=== PATIENT | male | born 1945 | race Caucasian/White ===

== ENCOUNTER 2020-02-28 14:15 | Outpatient (CLI) | payer MEDICARE, OTHER, SELFPAY ==
--- NOTE | 2020-02-28 14:27 | XR_ITS ---
WS: [id number] PROCEDURE: XR chest 2V* [id number] CLINICAL INFORMATION: COUGH COMPARISON: None. FINDINGS: Heart: Normal cardiac silhouette. Lungs: Chronic calcified granulomas. No acute pulmonary infiltrates. Mild chronic emphysematous daniels es. No focal pneumonia. Bones: Normal visualized bony structures. XR/XR chest 2V* [id number] IMPRESSION: 1. Chronic calcific granulomas. No acute pulmonary infiltrates. 2. Mild chronic emphysematous changes.
== END 2020-02-28 14:16 | disposition home or self-care (01) ==
PROVIDERS: Visit Provider Family Medicine
DX: R05 Cough (principal); J43.8 Other emphysema
CPT/HCPCS: 71046

== ENCOUNTER 2020-09-12 18:42 | Inpatient (IN) | payer MEDICARE, OTHER, SELFPAY ==
[2020-09-12 18:46] VITALS: BP 182/92; PULSE 96; RESP 18; TEMP 36.7; O2SAT 99; BMI 24.3
--- NOTE | 2020-09-12 18:47 | CTR_ITS ---
PROCEDURE INFORMATION: Exam: CT Head Without Contrast Exam date and time: 09/12/2020 7:36 PM Age: 75 years old Clinical indication: Altered mental status/memory loss and speech disturbance; Unspecified; Patient HX: C/O PETE, memory loss, rue numbness and speech difficulty; Additional info: TIA TECHNIQUE: Imaging protocol: Computed tomography of the head without contrast. Total images: 212 Radiation optimization: All CT scans at this facility use at least one of these dose optimization techniques: automated exposure control; mA and/or kV adjustment per patient size (includes targeted exams where dose is matched to clinical indication); or iterative reconstruction. COMPARISON: No relevant prior studies available. RADIATION DOSE METRICS: Total DLP (mGy-cm): 854.13 FINDINGS: Brain: No evidence of active or acute intracranial pathologic process, hemorrhage, or trauma. 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 Cerebral and cerebellar atrophy with ventricular dilatation greater than that anticipated for patient's chronological age. No mass effect. No midline shift. No cerebral edema. Cerebral ventricles: No ventriculomegaly. Bones/joints: Unremarkable. No acute fracture. Paranasal sinuses: Visualized sinuses are unremarkable. No fluid levels. Mastoid air cells: Visualized mastoid air cells are well aerated. Soft tissues: Unremarkable. CT/CT head wo con* [id number] IMPRESSION: No evidence of active or acute intracranial pathologic process, hemorrhage, or trauma. Radiation Dose CTDIVOL = (mGy): DLP = 854.13 (mGy-cm)
--- NOTE | 2020-09-12 20:02 | ED_ITS ---
HPI - Neuro Symptoms/Deficit General: Chief Complaint: Neuro Symptoms/Deficit Stated Complaint: TIA Time Seen by Provider: 09/12/20 19:52 Source: patient Mode of arrival: ambulatory Limitations: no limitations History of Present Illness: HPI Narrative: 75-year-old male states that at eleven today he started having some numbness down his righ tside along witha phasia and difficulty finding words. He states this lasted roughly 30 minutes he had a headach eas wel and he states that all symptoms resolved. He states that episodes like this over the last month or two. Patient denies any worsening or improving factors. He denies any headache currently. He denies any chest pain. Associated symptoms: Deny chest pain, headache(s), nausea or vomiting Review of Systems Const: Denies: fever(s), chills, body aches or change in appetite Eyes: Denies: blurry vision or eye discomfort ENMT: Denies: throat pain or dental pain Card: Denies: chest pain Resp: Denies: dyspnea GI: Denies: abdominal pain, nausea, vomiting or diarrhea : Denies: dysuria Musc: Denies: neck pain or back pain Skin/Breast: Denies: rash Neuro: Denies: headache(s) Psych: Denies: depression Collin/Lymph: Denies: easy bruising All/Imm: Denies: urticaria Physical Exam Const: COMMON NORMALS: no acute distress, patient oriented x3, healthy appearing and alert ORIENTATION/CONSCIOUSNESS: Yes oriented to person, Yes oriented to place and Yes oriented to time HENMT: COMMON NORMALS: normocephalic and atraumatic HEAD & SCALP: normocephalic and atraumatic Eye: COMMON NORMALS: Equal, round and reactive pupils present and EOMs intact bilaterally PUPIL: Yes Equal, round and reactive pupils present Neck/C-Spine: COMMON NORMALS: full ROM and supple Chest: COMMONS NORMALS: normal inspection of the chest and normal palpation of entire chest wall Resp: COMMON NORMALS: normal respiratory effort, No retractions, No use of accessory muscles and clear to auscultation bilaterally AUSCULTATION: clear to auscultation bilaterally Cardio: COMMON NORMALS: regular rate, regular rhythm and No murmurs present (Cardio) RATE: regular rate RHYTHM: regular rhythm GI: COMMON NORMALS: Normal to inspection, nondistended, normoactive bowel sounds present, Soft to palpation, non-tender and no masses PALPATION: Yes Soft to palpation Extremity: COMMON NORMALS: normal to inspection and full ROM Neuro: COMMON NORMALS: patient oriented x3, moves all extremities and no focal motor deficits SENSORIUM/ORIENTATION: Yes alert, Yes oriented to person, Yes oriented to place and Yes oriented to time CRANIAL NERVES: Yes CN normal except as noted SPEECH: speech normal GAIT: Yes Normal gait present MOTOR EXAM: 5/5 motor strength present throughout and Pronator motor function not present Psych: COMMON NORMALS: mental status grossly normal, Normal thought process present and cooperative THOUGHT PROCESS: Normal thought process present Skin: COMMON NORMALS: no rashes or lesions noted and no wounds GENERAL SKIN EXAM: no rashes or lesions noted Course Vital Signs: Vital signs: Vital Signs Temperature 98.1 F 09/12/20 18:46 Pulse Rate 86 09/12/20 21:02 Respiratory Rate 18 09/12/20 21:02 Blood Pressure 154/93 09/12/20 21:02 Pulse Oximetry 97 09/12/20 21:02 MDM - Neuro Symptoms/Deficit MDM Narrative: Medical decision making narrative: Davy presents here with a TIA. Patient symptoms have completely resolved and is not a TPA candidate. Patient given aspirin here. CT and blood work here is all normal. I spoke to hospitalist will admit for observation for his TIA. Lab Data: Labs: Lab Results 09/12/20 09/12/20 09/12/20 Range/Units 19:30 19:30 20:45 WBC 9.8 (4.0-10.0) 10^3/ uL RBC 4.26 (4.1-5.3) 10^6/u L Hgb 13.3 (11.7-16.6) g/dL Hct 39.2 L (42.0-52.0) % MCV 92.0 (80-94) fL MCH 31.2 (28.0-34.0) pg MCHC 33.9 (30.0-36.0) g/dL RDW 12.5 (12.1-15.1) % Plt Count 255 (130-400) 10^3/c mm MPV 10.8 H (7.4-10.4) fL Neut % (Auto) 39.7 % Lymph % (Auto) 42.8 % Schley % (Auto) 10.4 % Eos % (Auto) 6.0 % Baso % (Auto) 0.9 % Neut # (Auto) 3.89 (1.8-7.7) 10^3/u L Lymph # (Auto) 4.2 (0.8-4.8) 10^3/u L Schley # (Auto) 1.0 H (0.2-0.9) 10^3/u L Eos # (Auto) 0.6 (0.0-0.8) 10^3/u L Baso # (Auto) 0.1 (0.0-0.1) 10^3/u L Nucleated RBC % (a uto) 0 % Nucleated RBCs # 0.0 /100WBC Sodium 139 (136-145) mmol/L Potassium 3.8 (3.5-5.1) mmol/L Chloride 104 (98-107) mmol/L Carbon Dioxide 25 (22-29) mmol/L Anion Gap 13.8 (5-19) BUN 15 (8-23) mg/dL Creatinine 0.8 (0.7-1.2) mg/dL GFR Calculation Not Reportable Glucose 112 (65-115) mg/dL POC Glucose 95 (70-110) mg/dL Calculated Osmolal ity 290 (285-295) mOsm/k g Calcium 9.2 (8.5-10.5) mg/dL Total Bilirubin 0.2 (0.15-1.2) mg/dL AST 21 (0-40) U/L ALT 22 (0-41) U/L Alkaline Phosphata se 60 (40-130) IU/L Total Protein 7.5 (6.6-8.7) g/dL Albumin 4.1 (3.5-5.2) g/dL Globulin 3.4 (1.3-4.6) g/dL Imaging Data^: CT Head: Attestation: I personally reviewed and interpreted this imaging study as follows: Radiologist's impression: [address] [address] [address] Scan Report Signed Patient: Davy Rader Unit #: [id number] : 1945 Age/Sex: 75 / M ADM Date: 09/12/20 Loc: ER Room/Bed: Attending Dr: Ordering Provider/Ordering MD: Terri Mendes MD Date of Service: 09/12/20 Procedure(s): CT head wo con* [id number] Accession Number(s): [id number] Report Number: [id number] PROCEDURE INFORMATION: Exam: CT Head Without Contrast Exam date and time: 09/12/2020 7:36 PM Age: 75 years old Clinical indication: Altered mental status/memory loss and speech disturbance; Unspecified; Patient HX: C/O PETE, memory loss, rue numbness and speech difficulty; Additional info: TIA TECHNIQUE: Imaging protocol: Computed tomography of the head without contrast. Total images: 212 Radiation optimization: All CT scans at this facility use at least one of these dose optimization techniques: automated exposure control; mA and/or kV adjustment per patient size (includes targeted exams where dose is matched to clinical indication); or iterative reconstruction. COMPARISON: No relevant prior studies available. RADIATION DOSE METRICS: Total DLP (mGy-cm): 854.13 FINDINGS: Brain: No evidence of active or acute intracranial pathologic process, hemorrhage, or trauma. 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 Cerebral and cerebellar atrophy with ventricular dilatation greater than that anticipated for patient's chronological age. No mass effect. No midline shift. No cerebral edema. Cerebral ventricles: No ventriculomegaly. Bones/joints: Unremarkable. No acute fracture. Paranasal sinuses: Visualized sinuses are unremarkable. No fluid levels. Mastoid air cells: Visualized mastoid air cells are well aerated. Soft tissues: Unremarkable. CT/CT head wo con* [id number] IMPRESSION: No evidence of active or acute intracranial pathologic process, hemorrhage, or trauma. 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
[2020-09-12 20:14] LABS: Basophils # 0.1 10^3/uL (0.0-0.1); Basophils % 0.9 %; Eosinophils # 0.6 10^3/uL (0.0-0.8); Hematocrit 39.2 % (42.0-52.0); Hemoglobin 13.3 g/dL (11.7-16.6); Lymphocytes # 4.2 10^3/uL (0.8-4.8); Lymphocytes % 42.8 %; Mean Corpuscular HGB Conc 33.9 g/dL (30.0-36.0); Mean Corpuscular Hemoglobin 31.2 pg (28.0-34.0); Mean Platelet Volume 10.8 fL (7.4-10.4); Monocytes % 10.4 %; Neutrophils # 3.89 10^3/uL (1.8-7.7); Neutrophils % 39.7 %; Nucleated Red Blood Cells % 0 %; Platelet Count 255 10^3/cmm (130-400); Red Blood Count 4.26 10^6/uL (4.1-5.3); Red Cell Distribution Width 12.5 % (12.1-15.1); White Blood Count 9.8 10^3/uL (4.0-10.0)
[2020-09-12 20:41] LABS: Alanine Aminotransferase 22 U/L (0-41); Albumin Level 4.1 g/dL (3.5-5.2); Alkaline Phosphatase 60 IU/L (40-130); Anion Gap 13.8 (5-19); Aspartate Amino Transferase 21 U/L (0-40); Blood Urea Nitrogen 15 mg/dL (8-23); Calcium 9.2 mg/dL (8.5-10.5); Carbon Dioxide 25 mmol/L (22-29); Chloride 104 mmol/L (98-107); Globulin 3.4 g/dL (1.3-4.6); Glucose 112 mg/dL (65-115); Osmolality Calculated 290 mOsm/kg (285-295); Potassium 3.8 mmol/L (3.5-5.1); Sodium 139 mmol/L (136-145); Total Bilirubin 0.2 mg/dL (0.15-1.2); Total Protein 7.5 g/dL (6.6-8.7)
[2020-09-12 20:50] LABS: Glucose Point of Care 95 mg/dL (70-110)
[2020-09-12 21:02] VITALS: BP 154/93; PULSE 86; RESP 18; O2SAT 97
[2020-09-12 21:38] LABS: Add Urine Microscopic? NO
--- NOTE | 2020-09-12 21:38 | PM.HP ---
Providers/Chief Complaint Chief Complaint: TIA History of Present Illness Davy Rader is a 75 year old male who only has past medical history of hypertension presented today after experiencing expressive aphasia and right hand numbness. Patient is stating that he had similar episode a year ago when he had total darkness in front of his eyes which resolved on its own while he was working outside in today his symptoms started while he was in his tractor doing work in his cace[place]. He started experiencing frontal headache which he initially attributed to sinus infection, he is describing this headache as achy, would not call it migraine/throbbing headache, he did not experience any nausea, vomiting however with coughing his headache was getting worse when he went home his headache was not getting better and after eating his meal at 1 PM he started experiencing expressive aphasia and numbness of right side of his hand involving third fourth and fifth digit. His daughter was next to him who is a physical therapist she noticed facial droop and weakness of handgrip with expressive aphasia. His symptoms lasted for about 15 to 20 minutes and resolved spontaneously. Patient is denying fever, nausea, vomiting, shortness of breath, syncope, seizure-like activities, chest pain, palpitations Diagnosis in the ER revealed hypotension, normal hemodynamics, normal blood chemistry and UA CT head unremarkable, on clinical exam he has soft systolic murmur right second intercostal space otherwise NIH score 0, he was given a loading dose of aspirin Review of Systems Const: Denies: fever(s), chills, body aches or fatigue Eyes: Denies: change in vision ENMT: Denies: throat pain Card: Denies: chest pain Resp: Denies: dyspnea GI: Denies: abdominal pain : Denies: flank pain Musc: Denies: neck pain Skin/Breast: Denies: rash Neuro: Reports: headache(s), weakness in extremities and Slurred speech present Psych: Denies: anxiety Endo: Denies: polyuria Collin/Lymph: Denies: easy bruising All/Imm: Denies: urticaria PFSH Acute PFSH: Medical History (Updated 09/12/20 @ 22:31 by Jr Bryant MD) Hypertension Surgical History (Updated 09/12/20 @ 22:31 by Jr Bryant MD) No pertinent past surgical history Family History (Updated 09/12/20 @ 22:31 by Jr Bryant MD) Family/Other CAD (coronary artery disease) at age 84 Social History (Updated 09/12/20 @ 22:31 by Jr Bryant MD) Smoking and tobacco status: never smoked Alcohol intake: never Substance/Drug Use: never Household members: spouse Housing: House Vitals/I&O/Wt Last Vital Signs Temp 98.1 F 09/12/20 18:46 Pulse 86 09/12/20 21:02 Resp 18 09/12/20 21:02 BP 154/93 09/12/20 21:02 Pulse Ox 97 09/12/20 21:02 Weight last 48 hrs Weight 72.575 kg Physical Exam Narrative: EXAM NARRATIVE: elderly male who looks younger than stated age Well-hydrated, appropriately groomed NIH score 0 No active complaints No active chest pain S1, S2 sinus rhythm grade 2 systolic murmur right second intercostal space No cerebellar signs Awake alert oriented x3 no facial asymmetry No dysarthria Abdomen soft nontender bowel sound present Respiratory no distress bilateral breath sounds without adventitious rhonchi or crackles Lower extremity no edema gangrene ulcer Awake alert oriented x3 Skin without any ulcers No active headache Data : 09/12/20 19:30 09/12/20 19:30 A&P Assessment and plan (1) Transient cerebral ischemia: TIA ABCD [address] head unremarkable, will request MRI head with MRA Echo in the morning for systolic murmur Would request lipid panel, TSH and vascular imaging NIH 0 at the time my evaluation Would start dual antiplatelet therapy to be continued for at least 21 days, start high-dose statins Status: Acute Qualifiers: Transient cerebral ischemia type: unspecified Qualified Code(s): G45.9 - Transient cerebral ischemic attack, unspecified Additional A&P Information Hypertension: He takes losartan 50 mg at home which I would continue for now if he stays above 140/90 mmHg would recommend adding a second agent Headache: Patient complain of headache which got worse on coughing however CT head did not reveal any cranial mass with follow-up with MRI no active headache at this point no history of migraine Full code Cardiac diet DVT prophylaxis Lovenox Attestations Medical Necessity Statement*: Anticipating discharge in less than 48 hours will need MRI to rule out acute infarct for expressive aphasia right arm numbness he also has undiagnosed systolic murmur which needs further evaluation with echo Time Spent in Patient Care: (>than 50% of time spent in counselling and/or direct pt care on unit). 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
[2020-09-12] MEDS: aspirin 81 mg Chew Tablet 324 MG PO (21:49)
[2020-09-12 21:53] LABS: Bilirubin Urine Neg (Negative); Blood Urine Neg (Negative); Glucose Urine UA Norm (Normal); Ketones Urine Negative (Negative); Leukocyte Esterase Urine Negative (Negative); Nitrate Urine Negative (Negative); Protein Urine Neg (Negative); Specific Gravity, Urine 1.015 (1.005-1.030); Urine Appearance Clear (CLEAR); Urine Color Straw (Yellow); Urobilinogen Urine Norm (Negative); pH Urine 5 (5-7)
[2020-09-12 22:00] VITALS: BP 168/95; PULSE 74; RESP 18; O2SAT 97
--- NOTE | 2020-09-12 22:13 | MRR_ITS ---
PROCEDURE INFORMATION: Exam: MR Angiogram Head Without Contrast, Arteries Exam date and time: 09/12/2020 10:14 PM Age: 75 years old Clinical indication: Other: TIA TECHNIQUE: Imaging protocol: MR angiogram head without contrast. Exam focused on the arteries. COMPARISON: CT head wo con* [id number] 09/12/2020 7:32 PM FINDINGS: ANTERIOR CIRCULATION: Right internal carotid artery: Intracranial segment is patent with no significant stenosis. No aneurysm. Right middle cerebral artery: No occlusion or significant stenosis. No aneurysm. Right anterior cerebral artery: No occlusion or significant stenosis. No aneurysm. Left internal carotid artery: Intracranial segment is patent with no significant stenosis. No aneurysm. Left middle cerebral artery: No occlusion or significant stenosis. No aneurysm. Left anterior cerebral artery: No occlusion or significant stenosis. No aneurysm. POSTERIOR CIRCULATION: Right vertebral artery: No occlusion or significant stenosis. No aneurysm. Left vertebral artery: No occlusion or significant stenosis. No aneurysm. Basilar artery: No occlusion or significant stenosis. No aneurysm. Right posterior cerebral artery: No occlusion or significant stenosis. No aneurysm. Left posterior cerebral artery: No occlusion or significant stenosis. No aneurysm. MR/MR angio head wo con [id number] IMPRESSION: No stenosis or occlusion.
--- NOTE | 2020-09-12 22:13 | MRR_ITS ---
PROCEDURE INFORMATION: Exam: MR Head Without Contrast Exam date and time: 09/13/2020 1:51 PM Age: 75 years old Clinical indication: Other: TIA TECHNIQUE: Imaging protocol: MR of the head without contrast. COMPARISON: CT head wo con* [id number] 09/12/2020 7:32 PM FINDINGS: Brain: Moderate chronic microvascular ischemic changes. No acute infarct. Cerebral ventricles: Normal. No ventriculomegaly. Bones/joints: Unremarkable. Paranasal sinuses: Normal as visualized. No acute sinusitis. Mastoid air cells: Normal as visualized. No mastoid effusion. Orbits: Unremarkable. Soft tissues: Unremarkable. Other findings: No hemorrhage. MR/MR head wo con* [id number] IMPRESSION: No acute intracranial abnormality. Chronic microvascular ischemic changes.
[2020-09-12 22:32] LABS: INR 0.88 (0.8-1.2)
[2020-09-12] MEDS: losartan 50 mg Tablet PO (22:35)
[2020-09-12] MEDS: enoxaparin 40 mg/0.4 mL Syringe SUBCUT (22:45)
[2020-09-12 23:15] VITALS: BP 168/95; PULSE 78; RESP 18; O2SAT 97
[2020-09-13 02:08] LABS: Chol HDL Ratio 4.76 mg/dL (1.0-5.00); Cholesterol 200 mg/dL (0-200); HDL Cholesterol 42 mg/dL (60-100); LDL Cholesterol Calculated 132 mg/dL (50-129); LDL HDL Ratio 3.14 RATIO (0.00-3.22); Thyroid Stimulating Hormone 13.48 uIU/mL (0.27-4.20); Triglycerides 130 mg/dL (0-150); Vitamin B12 362 pg/mL (232-1245)
[2020-09-13 03:24] VITALS: BP 140/84; PULSE 70; RESP 16; O2SAT 97
[2020-09-13 07:30] VITALS: BP 123/78; PULSE 65; O2SAT 96
[2020-09-13 08:38] VITALS: BP 157/92
[2020-09-13] MEDS: losartan 50 mg Tablet PO (08:38)
[2020-09-13] MEDS: amlodipine 5 mg Tablet PO (08:39)
[2020-09-13] MEDS: aspirin 81 mg EC Tablet PO (08:40)
[2020-09-13] MEDS: clopidogrel 75 mg Tablet PO (08:40)
[2020-09-13] MEDS: atorvastatin 40 mg Tablet 80 MG PO (08:40)
[2020-09-13 11:00] VITALS: BP 147/92; PULSE 67; O2SAT 98
[2020-09-13 14:50] LABS: Free T4 Free Thyroxine 1.01 ng/dL (0.82-1.77); T3 Free 3.1 PG/ML (2.0-4.4)
--- NOTE | 2020-09-13 15:02 | PC.NURSE ---
Pt to MRI via EMS stretcher at this time
[2020-09-13 16:49] VITALS: BP 136/89; PULSE 84; O2SAT 98
--- NOTE | 2020-09-13 17:22 | PM.DCS ---
Discharge Providers Date of Admission: 09/12/20 20:58 Date of Discharge: September 13, 2020 Attending Provider at Admission: Jr Bryant MD Attending Provider at Discharge: Richard Xie Diagnoses at Discharge Discharge Diagnosis (1) Transient cerebral ischemia: Status: Acute Qualifiers: Transient cerebral ischemia type: unspecified Qualified Code(s): G45.9 - Transient cerebral ischemic attack, unspecified Reason for Visit Reason for Visit: TIA Hospital Course Hospital Course Very pleasant 75-year-old gentleman with history of HTN was admitted after episode of word finding difficulty at home, numbness of the right hand, right-sided facial droop noticed by his daughter. 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 States that he was not feeling well, and things worsened at home. Reportedly apart from feeling unwell he also noticed at home that he was having trouble getting his words out. He knew what he wanted to say, but things would not come out right. He did have associated headache. Denies associated vision changes. Numbness of the right hand was present. Daughter reportedly noticed weakness of handgrip, and also right-sided facial droop. Symptoms lasted about 15-20 minutes and spontaneously resolved per report. No symptoms of acute infection reported. He was brought in for evaluation in ER. He remained asymptomatic. CT of the head showed no bleeding and otherwise no evidence of acute intracranial pathology. He is already been taking aspirin 81 mg at home. He was in addition started on Plavix, statin. Was assessed by carotid Doppler which was unremarkable. Was noted to have soft systolic murmur on examination. Echocardiogram was performed with incidental finding of a calcified and thickened aortic valve, but without significant stenosis or regurgitation. He was monitored on telemetry in emergency department where he stayed due to lack of beds in the hospital, without noted atrial fibrillation. His glucose was not elevated. His blood pressures were initially as high as 182/92, subsequently gradually trended down closer to target range, 136/89. He was continued on losartan, however, amlodipine was added due to some persistent elevation in blood pressures in the 150s-160s systolic. Hypertension is certainly a risk factor in his case for TIA/CVA. This was discussed in detail with him and his spouse, in addition to other risk factors which may need to be concerned about. MRI and MRA of the brain were obtained, with finding of some chronic microvascular changes, otherwise unremarkable. No acute CVA noted. Prescription due to TIA he is at elevated risk of CVA going forward. In addition to hypertension will refer him for assessment with 21-day panel monitor to exclude paroxysmal atrial fibrillation as discussed and agreed upon also by Dr. Parsons who will be supervising to monitor. For now we will hold off on LIANNA as per discussion given CVA was not seen on MRI, however, this may be considered per discussion with neurology and PCP in office as discussed with him and his . They are agreeable for now to continue with 21-day course of Plavix in addition to aspirin. We discussed a Increased risk of bleeding with this regimen. After which Plavix would be discontinued unless deemed beneficial to continue longer by neurology. He is restarted on atorvastatin. 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 He does want to try restart therapy again, but will be vigilant and contact his primary care's office in case develops any symptoms of myopathy. We also discussed possibility of hemiplegic migraine as possible alternative explanation of his symptoms, due to also presence of a headache at that time. He otherwise does not describe symptoms of aura, although given lack of CVA visualized this may still be a possibility. Discussed with him and spouse that hemiplegic migraines may still elevate his risk of CVA in the future. They are agreeable to also raise this consideration with neurology during his visit. They understand reducing the risk of TIA/CVA and risk factors would still be the overarching goal. Patient states that he is feeling well, without return of symptoms, and is ready to return home. He will stay out of stressful jobs going forward, but will maintain moderate activity returning to his work when cleared to do so by his primary care provider and/or neurologist. During hospitalization incidentally noted also to have subclinical hypothyroidism, with TSH 13.48, free T4 1.01, free T3 3.1. Physical Exam Const: COMMON NORMALS: no acute distress and patient oriented x3 HENMT: COMMON NORMALS: oropharynx normal Neck/C-Spine: COMMON NORMALS: no meningeal signs and no JVD Resp: COMMON NORMALS: normal respiratory effort and clear to auscultation bilaterally AUSCULTATION: clear to auscultation bilaterally Cardio: COMMON NORMALS: no JVD, regular rhythm, S1 normal heart sound present, S2 normal heart sound present and No murmurs present (Cardio) RHYTHM: regular rhythm HEART SOUNDS: S1 normal heart sound present and S2 normal heart sound present GI: COMMON NORMALS: Normal to inspection, nondistended, normoactive bowel sounds present, Soft to palpation and non-tender PALPATION: Yes Soft to palpation Extremity: COMMON NORMALS: no joint enlargement and no pedal edema Neuro: COMMON NORMALS: patient oriented x3 and moves all extremities MENINGEAL SIGNS: Yes no meningeal signs COORDINATION/BALANCE: [id number]-[id number] test normal SPEECH: speech normal GAIT: Yes Normal gait present SENSORY EXAM: Yes extremities (symmetrical) and Normal double simultaneous stimulation for sensation MOTOR EXAM: 5/5 motor strength present throughout COORDINATION: [id number]-kq-[id number] test normal OTHER: Visual caceres full to confrontation. Skin: COMMON NORMALS: no rashes or lesions noted GENERAL SKIN EXAM: no rashes or lesions noted Discharge Data Data Completed and Pending: Completed Studies During Hospitalization Category Date Time Status CT head wo con* [id number] Urgent Cat Scan 09/12/20 18:47 Completed MR angio head wo con [id number] Routine MRI 09/12/20 22:13 Completed MR head wo con* [id number] Routine MRI 09/12/20 22:13 Completed CV carotid duplex BI* [id number] Routine Ultrasound 09/13/20 22:13 Completed CV echo complete* [id number] Routine Ultrasound 09/13/20 22:13 Completed Labs from last 24 hours 09/12/20 09/12/20 09/12/20 20:55 20:45 19:30 WBC RBC Hgb Hct MCV MCH MCHC RDW Plt Count MPV Neut % (Auto) Lymph % (Auto) Sargent % (Auto) Eos % (Auto) Baso % (Auto) Neut # (Auto) Lymph # (Auto) Sargent # (Auto) Eos # (Auto) Baso # (Auto) Nucleated RBC % (a uto) Nucleated RBCs # PT INR Sodium Potassium Chloride Carbon Dioxide Anion Gap BUN Creatinine GFR Calculation Glucose POC Glucose 95 Calculated Osmolal ity Calcium Total Bilirubin AST ALT Alkaline Phosphata se Total Protein Albumin Globulin Triglycerides Cholesterol LDL Cholesterol, C alc HDL Cholesterol LDL/HDL Ratio Cholesterol/HDL Ra ermias Vitamin B12 TSH Free T4 1.01 Free T3 3.1 Urine Color Straw Urine Appearance Clear Urine pH 5 Ur Specific Gravit y 1.015 Urine Protein Neg Urine Glucose (UA) Norm Urine Ketones Negative Urine Blood Neg Urine Nitrate Negative Urine Bilirubin Neg Urine Urobilinogen Norm Ur Leukocyte Solange ase Negative 09/12/20 09/12/20 09/12/20 19:30 19:30 19:30 WBC RBC Hgb Hct MCV MCH MCHC RDW Plt Count MPV Neut % (Auto) Lymph % (Auto) Sargent % (Auto) Eos % (Auto) Baso % (Auto) Neut # (Auto) Lymph # (Auto) Sargent # (Auto) Eos # (Auto) Baso # (Auto) Nucleated RBC % (a uto) Nucleated RBCs # PT 12.20 INR 0.88 Sodium 139 Potassium 3.8 Chloride 104 Carbon Dioxide 25 Anion Gap 13.8 BUN 15 Creatinine 0.8 GFR Calculation Not Reportable Glucose 112 POC Glucose Calculated Osmolal ity 290 Calcium 9.2 Total Bilirubin 0.2 AST 21 ALT 22 Alkaline Phosphata se 60 Total Protein 7.5 Albumin 4.1 Globulin 3.4 Triglycerides 130 Cholesterol 200 LDL Cholesterol, C alc 132 H HDL Cholesterol 42 L LDL/HDL Ratio 3.14 Cholesterol/HDL Ra ermias 4.76 Vitamin B12 362 TSH 13.48 H Free T4 Free T3 Urine Color Urine Appearance Urine pH Ur Specific Gravit y Urine Protein Urine Glucose (UA) Urine Ketones Urine Blood Urine Nitrate Urine Bilirubin Urine Urobilinogen Ur Leukocyte Solange ase 09/12/20 19:30 WBC 9.8 RBC 4.26 Hgb 13.3 Hct 39.2 L MCV 92.0 MCH 31.2 MCHC 33.9 RDW 12.5 Plt Count 255 MPV 10.8 H Neut % (Auto) 39.7 Lymph % (Auto) 42.8 Sargent % (Auto) 10.4 Eos % (Auto) 6.0 Baso % (Auto) 0.9 Neut # (Auto) 3.89 Lymph # (Auto) 4.2 Sargent # (Auto) 1.0 H Eos # (Auto) 0.6 Baso # (Auto) 0.1 Nucleated RBC % (a uto) 0 Nucleated RBCs # 0.0 PT INR Sodium Potassium Chloride Carbon Dioxide Anion Gap BUN Creatinine GFR Calculation Glucose POC Glucose Calculated Osmolal ity Calcium Total Bilirubin AST ALT Alkaline Phosphata se Total Protein Albumin Globulin Triglycerides Cholesterol LDL Cholesterol, C alc HDL Cholesterol LDL/HDL Ratio Cholesterol/HDL Ra ermias Vitamin B12 TSH Free T4 Free T3 Urine Color Urine Appearance Urine pH Ur Specific Gravit y Urine Protein Urine Glucose (UA) Urine Ketones Urine Blood Urine Nitrate Urine Bilirubin Urine Urobilinogen Ur Leukocyte Solange ase Vitals: Last Vital Signs Temp 98.1 F 09/12/20 18:46 Pulse 84 09/13/20 16:49 Resp 16 09/13/20 03:24 BP 136/89 09/13/20 16:49 Pulse Ox 98 09/13/20 16:49 Discharge Plan Discharge Patient Disposition: Home Condition: Stable Prescriptions: New atorvastatin 40 mg Tablet 40 mg PO DAILY Qty: 30 RF: 0 amlodipine 5 mg Tablet 5 mg PO DAILY Qty: 30 RF: 0 clopidogrel 75 mg Tablet 75 mg PO DAILY Qty: 20 RF: 0 Continued losartan 50 mg tablet 50 mg PO DAILY@0700 RF: 0 Aspir-81 81 mg Tablet,Delayed Release (Dr/Ec) 81 mg PO DAILY@0700 RF: 0 One A Day Tablet 1 tab PO DAILY@0700 RF: 0 Vitamin C 1 tab PO DAILY@0700 RF: 0 Vitamin D3 1 tab PO DAILY@0700 RF: 0 Discharge Orders: Discharge Order (Routine); Ordered 09/13/20 Ordered By: Richard Xie Other Ambulatory Orders: CA cardiac event monitor (Routine) Timeframe: 2 Days Facility: [facility] - Location: Cardiac Diagnostic Laboratory Ordered By: Richard Xie Referrals: [facility] [Provider Group] - 4-7 days (TIA, headaches) Gareth Rain DO [Staff Physician] - 4-7 days (TIA) Discharge Diet: Cardiac Discharge Activity: Increase activity as tolerated and Limit activity as instructed Patient Instructions: Clopidogrel (By mouth), Transient Ischemic Attack (GEN), Hypertension (GEN) Activity Restrictions/Additional Instructions: Please monitor your blood pressure 3 times daily. Write down values to review with your primary care provider and neurologist in office. Please note you are referred to set up a 21-day event monitor. Please follow-up with your primary care doctor, but this will be also supervised by the geothermal operating engineer Dr. Parsons. Please discuss with your primary care provider and neurologist possible referral for LIANNA (transesophageal echocardiogram) for additional assessment of risk factors for TIA or stroke. MRI of your brain was unremarkable with some noted chronic microvascular changes. Please discuss further with your primary care doctor. Please note you are started on clopidogrel which is an antiplatelet medication may predispose you to bleeding similarly to aspirin. This is started for maximum 21 days unless it will be continued for longer time by your primary provider or neurologist. Please take precautions to avoid injury to avoid risk of bleeding. Please discuss with your primary care doctor incidentally noted subclinical elevation of TSH (subclinical hypothyroidism) your T3 and T4 are normal. Discussed with your primary care doctor incidental finding of thickened aortic valve without stenosis or regurgitation. In case you experience any numbness, weakness, trouble speaking, vision changes, or any other concerning symptoms, please call 911 immediately. Discharge Attestations Time Spent in Discharge Care*: greater than 30 min Quality Metrics Clinical Quality Measures During this hospital stay, did patient experience: None Coding Level of Care Code Acute Dental Insurance Coordinator for Gregg Garland Diagnoses Transient cerebral ischemia G45.9 Transient cerebral ischemia type: unspecified
--- NOTE | 2020-09-13 22:13 | USCV_ITS ---
Davy Rader Age: 75 Gender: M : 1945 Exam Date: 09/13/2020 04:40 Ordering Phys: Jr Bryant MD Technologist: Aliyah Xiong [place] [facility] [place]: TIA BP: 105 / 76 HR: 62 Rhythm: Sinus Technical Quality: Adequate MEASUREMENTS (Male / Female) Normal Values 2D ECHO LV Diastolic Diameter PLAX 4.0 cm 4.2 - 5.9 / 3.9 - 5.3 cm LV Systolic Diameter PLAX 2.6 cm LV Chamber Size 3.6 cm IVS Diastolic Thickness 1.1 cm 0.6 - 1.0 / 0.6 - 0.9 cm IVS Systolic Thickness 1.2 cm LVPW Diastolic Thickness 0.9 cm 0.6 - 1.0 / 0.6 - 0.9 cm LVPW Systolic Thickness 1.3 cm RV Chamber Size 2.3 cm LVOT Diameter 2.1 cm LV Ejection Fraction 2D Teich 64.7 % LV Ejection Fraction MOD 2C 54.8 % LV Ejection Fraction 2C AL 58.0 % LA Diameter 3.5 cm LA Width 2.6 cm LA Height 3.0 cm RA Width 3.5 cm RA Height 3.4 cm Aorta at Sinotubular Diameter 2.6 cm M-MODE LV Diastolic Diameter MM 4.8 cm 4.2 - 5.9 / 3.9 - 5.3 cm LV Systolic Diameter MM 3.5 cm LV Ejection Fraction MM Teich 53.9 % IVS Diastolic Thickness MM 0.8 cm 0.6 - 1.0 / 0.6 - 0.9 cm IVS Systolic Thickness MM 1.4 cm LVPW Diastolic Thickness MM 1.1 cm 0.6 - 1.0 / 0.6 - 0.9 cm LVPW Systolic Thickness MM 1.4 cm RV Diastolic Diameter MM 1.1 cm Aortic Annulus Diameter 3.2 cm LA Ao Ratio MM 1.3 MV E Point Septal Separation 0.5 cm DOPPLER AV Peak Velocity 196.0 cm/s LVOT Peak Velocity 108.0 cm/s AV Area Cont Eq vti 2.0 cm squared AV Area Cont Eq pk 1.9 cm squared MV Area PHT 2.7 cm squared Mitral E to A Ratio 1.1 MV E' Velocity 55.5 cm/s Mitral E to MV E' Ratio 14.2 Mitral E to LV E' Lateral Ratio 14.4 Mitral E to LV E' Septal Ratio 14.2 TR Peak Velocity 243.0 cm/s TR Peak Gradient 23.6 mmHg TR Mean Velocity 177.6 cm/s TR Mean Gradient 14.4 mmHg TR Velocity Time Integral 72.4 cm TV Peak E Velocity 69.0 cm/s Right Atrial Pressure 3.0 mmHg Pulmonary Artery Systolic Pressu 26.6 mmHg PV Peak Velocity 84.0 cm/s RV Acceleration Time 0.2 s RV Ejection Time 0.4 s RV AcT/ET 0.5 FINDINGS Left Ventricle Normal left ventricular size, systolic function and wall thickness, with no regional wall motion abnormalities. LVEF is 55 to 60%. Normal left ventricular wall thickness. Normal diastolic filling pattern. Right Ventricle The right ventricle is normal in size and function. Right Atrium The right atrium is normal in size. Left Atrium The left atrium is normal in size. Mitral Valve Structurally normal mitral valve without significant stenosis or prolapse. There is no mitral regurgitation. Aortic Valve Aortic valve is thickened and calcified. No significant aortic regurgitation or stenosis is noted. Tricuspid Valve Structurally normal tricuspid valve without significant stenosis. Trace tricuspid regurgitation is present. RVSP is 25 to 30 mmHg. Pulmonic Valve Structurally normal pulmonic valve without significant stenosis. There is no pulmonic regurgitation. Pericardium Normal pericardium without effusion. Aorta Normal ascending aorta dimension. CONCLUSIONS LV systolic function is normal with EF of 55 to 60%. Diastolic function is normal. Aortic valve is thickened and calcified however no significant stenosis is noted. No comparison studies are available Jere Parsons MD (Electronically Signed) Final Date: 13 September 2020 11:29 S
--- NOTE | 2020-09-13 22:13 | USR_ITS ---
PROCEDURE INFORMATION: Exam: US Duplex Bilateral Extracranial Arteries Exam date and time: 09/13/2020 4:29 AM Age: 75 years old Clinical indication: Other: TIA was only info i had TECHNIQUE: Imaging protocol: Real-time Duplex ultrasound scan of the bilateral carotid and vertebral arteries combining duran scale, color Doppler and spectral waveform analysis. Bilateral exam. COMPARISON: CT head wo con* [id number] 09/12/2020 7:32 PM FINDINGS: Right common carotid artery: Unremarkable. No occlusion or stenosis. Waveforms are monophasic. PSV 89.5 cm/s. Right internal carotid artery: Unremarkable. No occlusion or stenosis. Waveforms are monophasic. PSV 69.6 cm/s. Right ICA/CCA ratio: Within normal limits. Right external carotid artery: No stenosis in the origin. Right vertebral artery: Unremarkable. Antegrade flow. Left common carotid artery: Unremarkable. No occlusion or stenosis. Waveforms are monophasic. PSV 91 cm/s. Left internal carotid artery: Unremarkable. No occlusion or stenosis. Waveforms are monophasic. PSV 80.5 cm/s Left ICA/CCA ratio: Within normal limits. Left external carotid artery: No stenosis in the origin. Left vertebral artery: Unremarkable. Antegrade flow. US/CV carotid duplex BI* [id number] IMPRESSION: No carotid arterial stenosis. REFERENCES: SRU CRITERIA. The degree of internal carotid artery stenosis is based on criteria defined by the Society of Radiologists in Ultrasound (SRU). Normal is no stenosis. Mild is less than 50% stenosis. Moderate is 50-69% stenosis. Severe is greater than 69% stenosis to near occlusion. Near occlusion is a markedly narrowed lumen. Total occlusion is no detectable patent lumen.
--- NOTE | 2020-09-16 10:54 | PC.SOCIAL ---
called and per her they did not get scripts for new medications. She would like [facility] and the three new medications were called into [facility] at this pharmacy. is aware. No further questions.
== END 2020-09-13 18:00 | disposition home or self-care (01) | DRG 69 ==
LOC: ER 20:57 → ER IP 09-13 09:08
PROVIDERS: Emergency Medicine; Admitting Provider Internal Medicine; Emergency Provider Internal Medicine; Visit Provider Internal Medicine
DX: G45.9 Transient cerebral ischemic attack, unspecified (principal); I10 Essential (primary) hypertension; I95.9 Hypotension, unspecified; R01.1 Cardiac murmur, unspecified; E02 Subclinical iodine-deficiency hypothyroidism; Z79.82 Long term (current) use of aspirin
CPT/HCPCS: 12345; 36416; 70450; 70544; 70551; 80053; 80061; 81003; 82607; 82962; 84439; 84443; 84481; 85025; 85610; 93306; 93880; 96372; 99284; J1650

== ENCOUNTER → 2022-10-09 11:25 | Outpatient (BNVA) | payer MEDICARE, OTHER, SELFPAY | PROVIDERS: PCP Family Medicine; Visit Provider Family Medicine | DX: R00.2 Palpitations (principal); I44.30 Unspecified atrioventricular block; K21.9 Gastro-esophageal reflux disease without esophagitis; I63.9 Cerebral infarction, unspecified | CPT/HCPCS: 80053; 80061; 84443; 85025 ==

== ENCOUNTER → 2022-10-28 09:31 | Outpatient (BNVA) | payer MEDICARE, OTHER, SELFPAY | PROVIDERS: PCP Family Medicine; Visit Provider Family Medicine | DX: I10 Essential (primary) hypertension (principal); R79.89 Other specified abnormal findings of blood chemistry | CPT/HCPCS: 84443 ==

== ENCOUNTER → 2022-11-02 10:08 | Outpatient (BNVA) | payer MEDICARE, OTHER, SELFPAY | PROVIDERS: PCP Family Medicine; Visit Provider Internal Medicine | DX: I44.30 Unspecified atrioventricular block (principal); R00.2 Palpitations | CPT/HCPCS: 93225 ==

== ENCOUNTER → 2022-12-18 11:04 | Outpatient (BNVA) | payer MEDICARE, OTHER, SELFPAY | PROVIDERS: PCP Family Medicine; Visit Provider Family Medicine | DX: I10 Essential (primary) hypertension (principal); R79.89 Other specified abnormal findings of blood chemistry | CPT/HCPCS: 84443 ==

== ENCOUNTER → 2023-03-15 13:51 | Outpatient (BNVA) | payer MEDICARE, OTHER, SELFPAY | PROVIDERS: PCP Family Medicine; Visit Provider Internal Medicine | DX: I10 Essential (primary) hypertension (principal); R01.1 Cardiac murmur, unspecified; R00.2 Palpitations; I49.3 Ventricular premature depolarization | CPT/HCPCS: 99214 ==

== ENCOUNTER 2023-04-02 10:01 | Outpatient (CLI) | payer MEDICARE, OTHER, SELFPAY ==
--- NOTE | 2023-04-02 10:30 | USCV_ITS ---
Dior Davy Age: 77 Gender: M : 1945 Exam Date: 04/02/2023 10:40 Ordering Phys: Jere Parsons M.D ([email or web address]) Technologist: Exam Location: [facility] [place] Indication: murmur as BP: 130 / 80 HR: 63 Rhythm: Sinus Technical Quality: Adequate MEASUREMENTS (Male / Female) Normal Values 2D ECHO LV Diastolic Diameter PLAX 3.2 cm 4.2 - 5.9 / 3.9 - 5.3 cm LV Systolic Diameter PLAX 1.8 cm IVS Diastolic Thickness 1.2 cm 0.6 - 1.0 / 0.6 - 0.9 cm IVS Systolic Thickness 1.2 cm LVPW Diastolic Thickness 1.3 cm 0.6 - 1.0 / 0.6 - 0.9 cm LVPW Systolic Thickness 1.3 cm LVOT Diameter 2.1 cm LV Ejection Fraction 2D Teich 78.0 % LV Ejection Fraction MOD 2C 74.6 % LV Ejection Fraction 2C AL 74.5 % LA Diameter 3.4 cm IVC Diameter 2.0 cm M-MODE Aortic Annulus Diameter 3.4 cm LA Ao Ratio MM 1.1 MV E Point Septal Separation 1.3 cm DOPPLER AV Peak Velocity 307.3 cm/s LVOT Peak Velocity 139.0 cm/s AV Area Cont Eq vti 1.5 cm squared AV Area Cont Eq pk 1.5 cm squared MV E' Velocity 8.0 cm/s TR Peak Velocity 216.0 cm/s TR Peak Gradient 18.7 mmHg TV Peak E Velocity 72.0 cm/s Right Atrial Pressure 3.0 mmHg Pulmonary Artery Systolic Pressu 21.7 mmHg RV Acceleration Time 0.1 s FINDINGS Left Ventricle Normal left ventricular size and systolic function, EF 66 %. Mild left ventricular hypertrophy. No regional wall motion abnormalities. Right Ventricle The right ventricle is normal in size and function. Right Atrium The right atrium is normal in size. Left Atrium The left atrium is normal in size. Mitral Valve No gross abnormalities noted Aortic Valve [id number] aortic valve stenosis. The peak velocity of 3.1 cm/s with a peak gradient of 41 and a mean gradient of 19 mmHg. The aortic valve area was 1.46 cm squared Tricuspid Valve Trace tricuspid valve regurgitation. Estimated pulmonary artery peak systolic pressure 22 mmHg Pulmonic Valve Pulmonic valve not well visualized. Pericardium Normal pericardium without effusion. Aorta Normal ascending aorta dimension. IVC The inferior vena cava appears normal. CONCLUSIONS Normal left ventricular size and systolic function, EF 66 %. Mild left ventricular hypertrophy. No regional wall motion abnormalities. Aggtgyaf-zk-[id number] aortic valve stenosis. The peak velocity of 3.1 cm/s with a peak gradient of 41 and a mean gradient of 19 mmHg. The aortic valve area was 1.46 cm squared. Trace tricuspid valve regurgitation. Estimated pulmonary artery peak systolic pressure 22 mmHg. There is no pericardial effusion. There are no intracardiac masses. Compared to the study from 09/13/2020, there is development of aortic valve stenosis Dr Raman Rivas MD [facility] (Electronically Signed) Final Date: 03 April 2023 12:10 S
== END 2023-04-02 10:02 | disposition home or self-care (01) ==
PROVIDERS: PCP Family Medicine; Visit Provider Internal Medicine
DX: R01.1 Cardiac murmur, unspecified (principal); I35.0 Nonrheumatic aortic (valve) stenosis
CPT/HCPCS: 93306

== ENCOUNTER → 2023-06-10 13:31 | Outpatient (BNVA) | payer MEDICARE, OTHER, SELFPAY | PROVIDERS: PCP Family Medicine; Visit Provider Physician Assistant | DX: M65.331 Trigger finger, right middle finger; M18.12 Unilateral primary osteoarthritis of first carpometacarpal joint, left hand | CPT/HCPCS: 73130; 99203 ==

== ENCOUNTER → 2023-06-21 08:24 | Outpatient (BNVA) | payer MEDICARE, OTHER, SELFPAY | PROVIDERS: PCP Family Medicine; Visit Provider Family Medicine | DX: E03.9 Hypothyroidism, unspecified (principal); R79.89 Other specified abnormal findings of blood chemistry | CPT/HCPCS: 84443 ==

== ENCOUNTER → 2023-08-11 07:56 | Outpatient (BNVA) | payer MEDICARE, OTHER, SELFPAY | PROVIDERS: PCP Family Medicine; Visit Provider Family Medicine | DX: E03.9 Hypothyroidism, unspecified (principal) | CPT/HCPCS: 84443 ==

== ENCOUNTER → 2024-07-06 12:30 | Outpatient (BNVA) | payer MEDICARE, OTHER, SELFPAY | PROVIDERS: PCP Family Medicine; Visit Provider Internal Medicine Cardiovascular Disease | DX: I49.3 Ventricular premature depolarization (principal); I35.0 Nonrheumatic aortic (valve) stenosis; I10 Essential (primary) hypertension | CPT/HCPCS: 99214 ==

== ENCOUNTER 2024-08-09 07:35 | Outpatient (CLI) | payer MEDICARE, OTHER, SELFPAY ==
--- NOTE | 2024-08-09 07:45 | USCV_ITS ---
Davy Rader Age: 79 Gender: M : 1945 Exam Date: 08/09/2024 07:49 Ordering Phys: Jr Talbot MD ([email or web address]) Technologist: Exam Location: [facility] [place] Indication: cp sob BP: 134 / 75 HR: 54 Rhythm: Sinus Technical Quality: Adequate MEASUREMENTS (Male / Female) Normal Values 2D ECHO LV Diastolic Diameter PLAX 3.0 cm 4.2 - 5.9 / 3.9 - 5.3 cm IVS Diastolic Thickness 1.1 cm 0.6 - 1.0 / 0.6 - 0.9 cm IVS Systolic Thickness 1.7 cm LVPW Diastolic Thickness 1.1 cm 0.6 - 1.0 / 0.6 - 0.9 cm LVPW Systolic Thickness 1.3 cm LVOT Diameter 2.0 cm LV Ejection Fraction 2D Teich 66.5 % LV Ejection Fraction MOD 4C 71.0 % LV Ejection Fraction MOD 2C 73.4 % LV Ejection Fraction 2C AL 73.5 % LA Diameter 3.0 cm RA Systolic Volume 4C AL 29.0 ml RA Systolic Volume 4C MOD 28.0 ml Aorta at Sinotubular Diameter 3.0 cm IVC Diameter 1.5 cm M-MODE LA Ao Ratio MM 1.0 AV Cusp Separation MM 0.7 cm DOPPLER AV Peak Velocity 312.5 cm/s AV Area Cont Eq vti 1.3 cm squared AV Area Cont Eq pk 1.1 cm squared MV Peak Velocity 134.0 cm/s MV Area PHT 3.0 cm squared TR Peak Velocity 335.0 cm/s TR Peak Gradient 44.9 mmHg TV Peak E Velocity 95.0 cm/s Right Atrial Pressure 3.0 mmHg Pulmonary Artery Systolic Pressu 47.9 mmHg PV Peak Velocity 124.0 cm/s FINDINGS Left Ventricle Normal left ventricular size, systolic function and wall thickness, with no regional wall motion abnormalities. Left ventricular ejection fraction is estimated at 60 %. Grade II/IV diastolic dysfunction, moderately elevated filling pressures. Right Ventricle The right ventricle is normal in size and function. Mild pulmonary hypertension, RVSP 47.9 mmHg. Right Atrium The right atrium is normal in size. Left Atrium The left atrium is normal in size. Mitral Valve Structurally normal mitral valve without significant stenosis or prolapse. There is no mitral regurgitation. Aortic Valve Moderate aortic valve calcification. Moderate aortic valve stenosis, mean gradient 14.2 mmHg, PITO 1.3 cm squared. Trace aortic valve regurgitation. Tricuspid Valve Trace tricuspid valve regurgitation. Pulmonic Valve Structurally normal pulmonic valve without significant stenosis. There is no pulmonic regurgitation. Pericardium Normal pericardium without effusion. Aorta Normal ascending aorta dimension. IVC The inferior vena cava appears normal. CONCLUSIONS Normal left ventricular size, systolic function and wall thickness, with no regional wall motion abnormalities. Left ventricular ejection fraction is estimated at 60 %. Grade II/IV diastolic dysfunction, moderately elevated filling pressures. Moderate aortic valve calcification. Moderate aortic valve stenosis, mean gradient 14.2 mmHg, PITO 1.3 cm squared. Trace aortic valve regurgitation. There is no pericardial effusion. There are no intracardiac masses. The right ventricle is normal in size and function. Mild pulmonary hypertension, RVSP 47.9 mmHg. Right atrial pressure is around 5 mm of mercury. Jr Talbot MD (Electronically Signed) Final Date: 09 August 2024 23:53 S
== END 2024-08-09 07:36 | disposition home or self-care (01) ==
LOC: RAD 07:37
PROVIDERS: PCP Family Medicine; Visit Provider Internal Medicine Cardiovascular Disease
DX: I35.0 Nonrheumatic aortic (valve) stenosis (principal); I50.30 Unspecified diastolic (congestive) heart failure
CPT/HCPCS: 93306

== ENCOUNTER 2024-08-22 10:41 | Outpatient (CLI) | payer MEDICARE, OTHER, SELFPAY ==
--- NOTE | 2024-08-22 10:43 | XR_ITS ---
WS: [id number] XR hip LT 2-3V wo/w pel* [id number] REASON FOR EXAM: R10.2 - Pelvic and perineal pain FINDINGS: No acute fracture or focal bone lesion. Mild narrowing of the posterior inferior joint space with mild subchondral sclerosis at the acetabulu m. Minimal narrowing of the superior anterior joint space with mild subchondral sclerosis of the acet abulum. XR/XR hip LT 2-3V wo/w pel* [id number] IMPRESSION: Mild osteoarthritis of the left hip.
--- NOTE | 2024-08-22 10:43 | XR_ITS ---
WS: [id number] XR pelvis 1-2V* [id number] REASON FOR EXAM: R10.2 - Pelvic and perineal pain FINDINGS: Sacroiliac joints are unremarkable. Visualized sacrum and coccyx are normal. No pelvic bony abnormality. No pelvic soft tissue mass identified. Mild osteoarthritis in both hips. XR/XR pelvis 1-2V* [id number] IMPRESSION: Mild symmetric osteo arthritis of both hips the pelvis is otherwise unremarkabl e.
--- NOTE | 2024-08-22 10:43 | XR_ITS ---
WS: [id number] XR lumbar spine 2-3V* [id number] REASON FOR EXAM: R10.2 - Pelvic and perineal pain FINDINGS: Straightening of the normal lordosis of the lumbar spine. No significant vertebral body abnormality Significant narrowing of the L4-L5 and L5-S1 disc spaces with vacuum phenomena. Mild to moderate subc hondral sclerosis and osteophytosis L4-S1. 2 to 3 mm of anterolisthesis of L4 on L5. XR/XR lumbar spine 2-3V* [id number] IMPRESSION: Degenerative spondylosis of the lumbar spine as above.
== END 2024-08-22 10:42 | disposition home or self-care (01) ==
PROVIDERS: PCP Family Medicine; Visit Provider Family Medicine
DX: M43.16 Spondylolisthesis, lumbar region (principal); M99.63 Osseous and subluxation stenosis of intervertebral foramina of lumbar region; M25.78 Osteophyte, vertebrae; R10.2 Pelvic and perineal pain; M25.559 Pain in unspecified hip; W19.XXXA Unspecified fall, initial encounter
CPT/HCPCS: 72100; 72170; 73502

== ENCOUNTER → 2024-08-31 15:01 | Outpatient (BNVA) | payer MEDICARE, OTHER, SELFPAY | PROVIDERS: PCP Family Medicine; Visit Provider Orthopaedic Surgery | DX: M54.9 Dorsalgia, unspecified (principal); M48.062 Spinal stenosis, lumbar region with neurogenic claudication | CPT/HCPCS: 72110; 99204 ==

== ENCOUNTER 2024-09-04 11:17 | Emergency (ER) | payer MEDICARE, OTHER, SELFPAY ==
[2024-09-04 12:01] VITALS: BP 152/89; PULSE 71; RESP 12; TEMP 36.5; O2SAT 98; BMI 23.6
--- NOTE | 2024-09-04 12:48 | CT_ITS ---
WS: [id number] CT LUMBAR SPINE TECHNIQUE: Noncontrast CT of the lumbar spine with coronal and sagittal reformatted images. CLINICAL INFORMATION: fall COMPARISON: None. DLP: 474.[address] scans at [facility] use at least one of these dose optimization techniques: automated e xposure control; mA and/or kV adjustment per patient size (includes targeted exams where dose is matc hed to clinical indication); or iterative reconstruction. FINDINGS: Mild lumbar curve. No acute compression. L1-L2: Normal. L2-L3: Mild annular bulging. Moderate facet arthropathy. Mild central canal stenosis. Mild RIGHT fora roxane narrowing. L3-L4: Mild disc bulging with a small central protrusion. Narrowing of the subarticular recess is LEF T greater than RIGHT. Moderate central canal stenosis. LEFT foraminal protrusion impinges the exiting LEFT L3 nerve root with moderate to severe LEFT foraminal narrowing. Recommend correlation LEFT L3 n erve root symptoms. L4-L5: Mild annular bulging. Slight effacement of the ventral thecal sac. Moderate RIGHT foraminal na rrowing. LEFT foramen is patent. Moderate facet arthropathy. L5-S1: Small central protrusion with slight contact of the S1 nerve roots. Foramen are patent. Modera te facet arthropathy. Visualized pelvic bony structures: Normal. Paravertebral soft tissues: Normal. CT/CT lumbar spine wo con* [id number] IMPRESSION: 1. Mild lumbar curve. No acute compression fractures. Slight anterolisthesis L 4 on L5. 2. Moderate central canal stenosis L3-4 with impingement subarticular recess b ilaterally. 3. LEFT foraminal protrusion L3-4 impinges the exiting L3 nerve root with mode rate to severe LEFT foraminal narrowing. 4. Moderate RIGHT L4-5 foraminal narrowing. 5. Findings could be followed up with MRI on an elective basis for better krystle omic detail.
--- NOTE | 2024-09-04 12:48 | ED_ITS ---
HPI - Back Pain/Injury General: Chief Complaint: Back Pain/Injury Stated Complaint: fall - back pain Time Seen by Provider: 09/04/24 12:39 Source: patient Mode of arrival: ambulatory Limitations: no limitations History of Present Illness: 79-year-old male states he had a fall ro ughly 3 weeks ago states that since then he has been having increasing left lower back pain. States pains been sharp in nature rates it a 6 out of 10 currently has had some radiation down his left leg to his knee. He denies any bowel or bladder incontinence he is able to ambulate has some increased pain with ambulation he has followed with spine surgery has an MRI scheduled for tomorrow states has been having hard time sleeping due to pain Associated symptoms: Deny abdominal pain, chills, fever(s), nausea or vomiting Related Data Home Medications Medication Instructions Recorded Confirmed Vitamin C 1 tab PO DAILY@0700 09/13/20 08/31/24 Vitamin D3 1 tab PO DAILY@0700 09/13/20 08/31/24 multivitamin 1 tab PO DAILY@0700 09/13/20 08/31/24 red yeast rice 600 mg capsule 600 mg PO DAILY 03/15/23 08/31/24 Previous Rx's Medication Instructions Recorded diclofenac sodium 1 % topical gel 4 g topical QID #100 grams 06/10/23 (Voltaren Arthritis Pain) clopidogrel 75 mg tablet See Rx Instructions .Route 02/25/24 .COMPLEX #90 tabs metoprolol succinate 25 mg 12.5 mg (1/2 x 25 mg) PO DAILY #45 05/08/24 tablet,extended release 24 hr tabs losartan 100 mg tablet 100 mg PO DAILY #90 tabs 05/24/24 omeprazole 20 mg capsule,delayed 20 mg PO DAILY stomach #90 caps 05/25/24 release levothyroxine 75 mcg tablet 75 mcg PO DAILY thyroid #90 tabs 05/31/24 amlodipine 5 mg tablet 5 mg PO DAILY #90 tabs 06/26/24 fluticasone propionate 50 2 spray intranasal DAILY sinus 06/27/24 mcg/actuation nasal congestion #16 grams spray,suspension tramadol 50 mg tablet 50 mg PO Q6H PRN pain #1 tab 08/21/24 prednisone 10 mg tablet See Rx Instructions PO DAILY #18 08/28/24 tabs hydrocodone 5 mg-acetaminophen 325 1 tab PO Q6H PRN pain #10 tabs 09/04/24 mg tablet Allergies Allergy/AdvReac Type Severity Reaction Status Date / Time No Known Allergies Allergy Verified 08/31/24 15:07 Review of Systems Const: Denies: fever(s), chills, body aches or change in appetite ENMT: Denies: throat pain or dental pain Card: Denies: chest pain Resp: Denies: dyspnea GI: Denies: abdominal pain, nausea, vomiting or diarrhea : Denies: difficulty urinating Musc: Reports: back pain and extremity pain; Denies: neck pain Skin/Breast: Denies: rash Neuro: Denies: headache(s) PFSH ED PFSH: Medical History Hypertension Surgical History No pertinent past surgical history Family History Family/Other CAD (coronary artery disease) at age 84 Social History Smoking and tobacco/nicotine status: never used tobacco/nicotine Second hand smoke exposure: No Alcohol intake: never Substance/Drug Use: never Adopted: No Caregiver/support person: No Lives independently: Yes Household members: spouse Housing: House Marital status: Number of children: 2 Highest education level completed: 8th Grade Current occupational status: retired Pets and animals: Yes Do you think of yourself as: Straight/Heterosexual Current gender identity: Male Physical Exam Const: COMMON NORMALS: no acute distress, patient oriented x3 and healthy appearing HENMT: COMMON NORMALS: normocephalic and atraumatic HEAD & SCALP: normocephalic and atraumatic Eye: COMMON NORMALS: conjunctivae normal CONJUNCTIVA: Yes conjunctivae normal Neck/C-Spine: COMMON NORMALS: full ROM and supple Chest: COMMONS NORMALS: normal inspection of the chest Resp: COMMON NORMALS: normal respiratory effort Cardio: COMMON NORMALS: regular rate, regular rhythm and No murmurs present (Cardio) RATE: regular rate RHYTHM: regular rhythm Back/Pelvis: OTHER: Tenderness noted over left lower back no midline tenderness no saddle anesthesia Extremity: COMMON NORMALS: normal to inspection and full ROM Neuro: COMMON NORMALS: patient oriented x3, moves all extremities and no focal motor deficits Psych: COMMON NORMALS: mental status grossly normal, Normal thought process present and cooperative THOUGHT PROCESS: Normal thought process present Skin: COMMON NORMALS: no rashes or lesions noted and no wounds GENERAL SKIN EXAM: no rashes or lesions noted Course Vital Signs: Vital signs: Vital Signs Temperature 97.7 F 09/04/24 12:01 Pulse Rate 71 09/04/24 12:01 Respiratory Rate 12 09/04/24 12:01 Blood Pressure 152/89 09/04/24 12:01 Pulse Oximetry 98 09/04/24 12:01 Oxygen Delivery Me thod Room Air 09/04/24 12:01 MDM - Back Pain/Injury Medical Decision Making Patient presents here with low back pain likely some sciatica is no signs of cord compression or epidural abscess he stable for discharge he has MRI scheduled tomorrow and is following up with spine surgeon he is to follow-up with scheduled return if worsening. Medical Records I reviewed the patient's medical records. Labs Radiology Impressions Lumbar Spine CT 09/04/24 12:48 IMPRESSION: 1. Mild lumbar curve. No acute compression fractures. Slight anterolisthesis L4 on L5. 2. Moderate central canal stenosis L3-4 with impingement subarticular recess bilaterally. 3. LEFT foraminal protrusion L3-4 impinges the exiting L3 nerve root with moderate to severe LEFT foraminal narrowing. 4. Moderate RIGHT L4-5 foraminal narrowing. 5. Findings could be followed up with MRI on an elective basis for better anatomic detail. All radiology interpretation(s) finalized by discharge Discharge Plan Discharge Patient Disposition: Home Clinical Impression: Low back pain Condition: Stable Prescriptions: New hydrocodone-acetaminophen 5-325 mg tablet 1 tab PO Q6H PRN (Reason: pain) Qty: 10 0RF No Action red yeast rice 600 mg capsule 600 mg PO DAILY Rx Instructions: give with meal/snack diclofenac sodium [Voltaren Arthritis Pain] 1 % gel 4 g topical QID Qty: 100 2RF Rx Instructions: apply to single knee, ankle, foot; for foot includes sole/toes/top of foot fluticasone propionate 50 mcg/actuation spray,suspension 2 spray intranasal DAILY Qty: 16 3RF Rx Instructions: administer into each nostril tramadol 50 mg tablet 50 mg PO Q6H PRN (Reason: pain) Qty: 1 0RF clopidogrel 75 mg tablet See Rx Instructions .ROUTE .COMPLEX Qty: 90 3RF Dose Instruction: Take 1 tablet by mouth once daily Rx Instructions: Take 1 tablet by mouth once daily metoprolol succinate 25 mg tablet extended release 24 hr 12.5 mg PO DAILY Qty: 45 3RF losartan 100 mg tablet 100 mg PO DAILY Qty: 90 3RF omeprazole 20 mg capsule,delayed release(DR/EC) 20 mg PO DAILY Qty: 90 1RF levothyroxine 75 mcg tablet 75 mcg PO DAILY Qty: 90 1RF amlodipine 5 mg tablet 5 mg PO DAILY Qty: 90 3RF prednisone 10 mg tablet See Rx Instructions PO DAILY Qty: 18 0RF Rx Instructions: 3 po qday x 1, then 2 po qday x 5 days, then 1 po qday x 5 days. One A Day Tablet 1 tab PO DAILY@0700 Vitamin C 1 tab PO DAILY@0700 Vitamin D3 1 tab PO DAILY@0700 Discharge Orders: Discharge ED (Routine); Ordered 09/04/24 Ordered By: Terri Mendes Referrals: Gareth Rain, [Primary Care Provider] - Discharge Diet: Advance as tolerated Discharge Activity: Resume usual activity Patient Instructions: Acute Low Back Pain (ED) Coding Level of Care Code ED Digital Account Manager for Gregg Garland
--- NOTE | 2024-09-04 12:48 | XRR_ITS ---
PROCEDURE INFORMATION: Exam: XR Left Knee Exam date and time: 09/04/2024 12:58 PM Age: 79 years old Clinical indication: Injury or trauma; Fall; Blunt trauma; Knee; Left; Injury date: 3 weeks ago TECHNIQUE: Imaging protocol: Radiologic exam of the left knee. Views: 3 views. COMPARISON: No relevant prior studies available. FINDINGS: Bones/joints: Normal. Soft tissues: Normal. XR/XR knee LT 3V* [id number] IMPRESSION: No acute findings.
[2024-09-04] MEDS: morphine 4 mg/mL SDV 1 mL IM (13:12)
[2024-09-04] MEDS: dexamethasone 10 mg/mL INJ IM (13:12)
[2024-09-04 13:59] VITALS: BP 142/91; PULSE 76; O2SAT 99
== END 2024-09-04 14:01 | disposition home or self-care (01) ==
PROVIDERS: Emergency Provider Emergency Medicine; PCP Family Medicine
DX: M54.50 Low back pain, unspecified (principal); I10 Essential (primary) hypertension
CPT/HCPCS: 72131; 73562; 96372; 99284; J1100; J2270

== ENCOUNTER 2024-09-06 07:46 | Outpatient (CLI) | payer MEDICARE, OTHER, SELFPAY ==
--- NOTE | 2024-09-06 08:00 | MR_ITS ---
WS: [id number] MRI LUMBAR SPINE NONCONTRAST TECHNIQUE: Sagittal T1, T2 and STIR imaging. Axial T1 and T2 imaging. CLINICAL INFORMATION: lumbar pain radiating to left hip and leg. COMPARISON: CT 09/04/2024 FINDINGS: Mild lumbar curve. Grade 1 anterolisthesis L4 on L5. Disc space narrowing worse at L5-S1. 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 L1-L2: Mild facet arthropathy. Spinal canal and foramen are patent. L2-L3: Mild disc bulge with mild central canal stenosis. Impingement on the LEFT greater than RIGHT s ubarticular recess. Foramen are patent. Mild facet arthropathy. L3-L4: Mild disc bulging with moderate central canal stenosis. Impingement subarticular recess bilate rally. Moderate facet arthropathy. LEFT foraminal protrusion impinges the exiting LEFT L3 nerve root with moderate to severe LEFT proximal foraminal narrowing. Disc material extends into the proximal LE FT neural foramen. RIGHT foramen is patent. Moderate facet arthropathy. L4-L5: Slight anterolisthesis. Moderate central canal stenosis with impingement of traversing L5 nerv e roots bilaterally. Moderate facet arthropathy. Moderate RIGHT foraminal narrowing impinges the exit ing RIGHT L4 nerve root with a RIGHT foraminal protrusion. LEFT foramen is patent. L5-S1: Tiny shallow central protrusion. Slight contact of the traversing S1 nerve roots bilaterally. Spinal canal is patent. Mild facet arthropathy. Foramen are patent. Visualized pelvic bony structures: Normal. Paravertebral soft tissues: Normal. MR/MR lumbar spine wo con* [id number] IMPRESSION: 1. Mild lumbar curve. No acute compression. Slight anterolisthesis L3 on L4 an d L4 on L5. 2. Moderate central canal stenosis L3-4 and L4-5 with impingement subarticular recess bilaterally. 3. Prominent LEFT foraminal protrusion L3-4 impinges the exiting L3 nerve root with moderate to severe LEFT foraminal narrowing. 4. Small RIGHT foraminal protrusion L4-5 impinges the exiting RIGHT L4 nerve r oot. 5. Tiny central protrusion L5-S1 with slight contact of the S1 nerve roots.
== END 2024-09-06 07:47 | disposition home or self-care (01) ==
LOC: RAD 07:46
PROVIDERS: PCP Family Medicine; Visit Provider Orthopaedic Surgery
DX: M50.20 Other cervical disc displacement, unspecified cervical region (principal); M54.16 Radiculopathy, lumbar region; M51.26 Other intervertebral disc displacement, lumbar region; M47.896 Other spondylosis, lumbar region; M99.63 Osseous and subluxation stenosis of intervertebral foramina of lumbar region; M43.16 Spondylolisthesis, lumbar region; M51.27 Other intervertebral disc displacement, lumbosacral region
CPT/HCPCS: 72148

== ENCOUNTER → 2024-09-07 08:03 | Outpatient (BNVA) | payer MEDICARE, OTHER, SELFPAY | PROVIDERS: PCP Family Medicine; Visit Provider Orthopaedic Surgery | DX: M54.42 Lumbago with sciatica, left side (principal); M54.9 Dorsalgia, unspecified; M48.062 Spinal stenosis, lumbar region with neurogenic claudication | CPT/HCPCS: 99214 ==

== ENCOUNTER → 2024-09-26 11:03 | Outpatient (BNVA) | payer MEDICARE, OTHER, SELFPAY | PROVIDERS: PCP Family Medicine; Visit Provider Family Medicine | DX: R79.89 Other specified abnormal findings of blood chemistry (principal); E03.9 Hypothyroidism, unspecified; I10 Essential (primary) hypertension; I35.0 Nonrheumatic aortic (valve) stenosis; I63.9 Cerebral infarction, unspecified | CPT/HCPCS: 80053; 80061; 84443 ==

== ENCOUNTER → 2025-03-26 09:47 | Outpatient (BNVA) | payer MEDICARE, OTHER, SELFPAY | PROVIDERS: PCP Family Medicine; Visit Provider Family Medicine | DX: I10 Essential (primary) hypertension (principal); I35.0 Nonrheumatic aortic (valve) stenosis; R79.89 Other specified abnormal findings of blood chemistry; E03.9 Hypothyroidism, unspecified; I63.9 Cerebral infarction, unspecified | CPT/HCPCS: 80053; 80061; 83036; 84443 ==

== ENCOUNTER → 2025-07-06 10:41 | Outpatient (BNVA) | payer MEDICARE, OTHER, SELFPAY | PROVIDERS: PCP Family Medicine; Visit Provider Internal Medicine Cardiovascular Disease | DX: I35.0 Nonrheumatic aortic (valve) stenosis (principal); I10 Essential (primary) hypertension | CPT/HCPCS: 99214 ==

== ENCOUNTER 2025-07-27 12:18 | Outpatient (CLI) | payer MEDICARE, OTHER, SELFPAY ==
--- NOTE | 2025-07-27 12:45 | USCV_ITS ---
Davy Rader Age: 80 Gender: M : 1945 Exam Date: 07/27/2025 13:23 Ordering Phys: Jr Talbot MD ([email or web address]) Technologist: Ernesto Beck [place] [facility] [place] Indication: ao valve stenosis BP: 132 / 76 HR: 63 Rhythm: Sinus Technical Quality: Adequate MEASUREMENTS (Male / Female) Normal Values 2D ECHO LV Diastolic Diameter PLAX 3.9 cm 4.2 - 5.9 / 3.9 - 5.3 cm IVS Diastolic Thickness 0.6 cm 0.6 - 1.0 / 0.6 - 0.9 cm IVS Systolic Thickness 1.0 cm LVPW Diastolic Thickness 1.0 cm 0.6 - 1.0 / 0.6 - 0.9 cm LVPW Systolic Thickness 1.2 cm LVOT Diameter 2.0 cm LV Ejection Fraction 2D Teich 78.0 % LV Ejection Fraction MOD 4C 54.3 % LV Ejection Fraction MOD 2C 67.5 % LV Ejection Fraction 2C AL 70.5 % LA Diameter 3.2 cm RA Systolic Volume 4C AL 19.0 ml RA Systolic Volume 4C MOD 18.3 ml LA Sys Volume AL 40.5 cm cubed LA Sys Volume Index AL 22.5 cm cubed/m squared Aorta at Sinotubular Diameter 2.5 cm IVC Diameter 1.7 cm M-MODE LA Ao Ratio MM 1.4 AV Cusp Separation MM 1.0 cm DOPPLER AV Peak Velocity 272.0 cm/s LVOT Peak Velocity 122.0 cm/s AV Area Cont Eq vti 1.7 cm squared AV Area Cont Eq pk 1.4 cm squared MV Peak Velocity 136.0 cm/s MV Area PHT 5.5 cm squared Mitral E to A Ratio 0.8 TV Peak Velocity 292.0 cm/s TR Peak Velocity 311.0 cm/s TR Peak Gradient 38.7 mmHg TR Mean Velocity 253.0 cm/s TR Mean Gradient 26.7 mmHg TR Velocity Time Integral 86.1 cm PV Peak Velocity 112.0 cm/s RV Ejection Time 0.3 s FINDINGS Left Ventricle Normal left ventricular size, systolic function and wall thickness, with no regional wall motion abnormalities. Left ventricular ejection fraction is estimated at 60 %. Grade I/IV diastolic dysfunction (abnormal relaxation filling pattern), normal to mildly elevated filling pressures. Right Ventricle Normal right ventricular size and systolic function. Right Atrium Normal right atrial size. Left Atrium Normal left atrial size. IA Septum Normal appearance of the interatrial septum. Mitral Valve Normal mitral valve structure. No mitral valve stenosis or regurgitation. Aortic Valve Severe aortic valve calcification. Moderate aortic valve stenosis, mean gradient 14.5 mmHg, PITO 1.7 cm squared. Trace aortic valve regurgitation. Tricuspid Valve Mild tricuspid valve regurgitation. Pulmonic Valve Normal pulmonic valve structure. No pulmonic valve stenosis or regurgitation. Pericardium No pericardial effusion. Aorta Normal diameter of the aortic root and ascending thoracic aorta. IVC Normal IVC diameter. CONCLUSIONS Normal left ventricular size, systolic function and wall thickness, with no regional wall motion abnormalities. Left ventricular ejection fraction is estimated at 60 %. Grade I/IV diastolic dysfunction (abnormal relaxation filling pattern), normal to mildly elevated filling pressures. Severe aortic valve calcification. Moderate aortic valve stenosis, mean gradient 14.5 mmHg, PITO 1.7 cm squared. Trace aortic valve regurgitation. Mild tricuspid valve regurgitation. There is no pericardial effusion. Right atrial pressure is around 5 mm of mercury. Jr Talbot MD (Electronically Signed) Final Date: 27 July 2025 20:40 S
== END 2025-07-27 12:19 | disposition home or self-care (01) ==
LOC: RAD 12:20
PROVIDERS: PCP Family Medicine; Visit Provider Internal Medicine Cardiovascular Disease
DX: I35.0 Nonrheumatic aortic (valve) stenosis (principal); R93.1 Abnormal findings on diagnostic imaging of heart and coronary circulation; I35.8 Other nonrheumatic aortic valve disorders; I07.1 Rheumatic tricuspid insufficiency
CPT/HCPCS: 93306